=== PATIENT | male | born 1970 ===

== ENCOUNTER 2017-06-23 15:40 | Emergency (ER) | payer BC ==
[2017-06-23 16:18] VITALS: BP 116/74; TEMP 98.2
--- NOTE | 2017-06-23 16:23 | C.PDOC ---
History Of Present Illness 47 y/o male presents to ED for evaluation of chest wall injury prior to arrival. Pt states he was at work when he accidentally fell out of car and struck metal object with front of his chest. Pt complaints of pain to the area, and states pain is worse with movement. Denies new deformity, shortness of breath, other associated trauma or symptoms. No pain meds taken prior to arrival. CHEST WALL INJURY ONSET DESULFURIZER MACHINE. PS AT WORK, ACCIDENTALLY FELL OUT OF CAR AND STRUCK METAL OBJECT WITH FRONT OF CHEST. CO PAIN TO AREA. WORSE W MOVEMENT. DENIES NEW DEFORMITY, SOB, OTHER ASSOC TRAUMA OR SX. NO PAIN MEDS TAKEN DESULFURIZER MACHINE EXAM MILD DIST NONTOXIC HEETN ATRAUM CHEST WALL +STERNAL TEND NO DEFORM, CREPITUS. NO SWELL. LUNGS CTA B/L NO W/R/R SKIN INTACT NO BRUISING, ATRAUM REMAINDE RNEG - HPI Time Seen by Provider: 06/23/17 16:17 Chief Complaint (Nursing): Trauma History Per: Patient History/Exam Limitations: no limitations Onset/Duration Of Symptoms: Mins Injury Occurred (Timing): Just Before Arrival Location Of Injury: Anterior: Chest Recent travel outside of the [place]: No Additional History Per: Patient Past Medical History Reviewed: Historical Data, Nursing Documentation, Vital Signs Vital Signs: Last Vital Signs Temp 98.2 F 06/23/17 16:18 Pulse 74 06/23/17 16:18 Resp 18 06/23/17 16:18 BP 116/74 06/23/17 16:18 Pulse Ox 96 06/23/17 16:46 Family History: States: No Known Family Hx - Social History Hx Alcohol Use: No Hx Substance Use: No - Immunization History Hx Tetanus Toxoid Vaccination: No Hx Influenza Vaccination: No Hx Pneumococcal Vaccination: No Review Of Systems Except As Marked, All Systems Reviewed And Found Negative. Cardiovascular: Positive for: Chest Pain (chest wall). Negative for: Palpitations, Light Headedness Respiratory: Negative for: Shortness of Breath Skin: Negative for: Bruising Physical Exam - Physical Exam Appears: Non-toxic, Other (In mild distress) Skin: Normal Color, Warm, Dry, No Ecchymosis (no bruising) Head: Atraumatic, Normacephalic Eye(s): bilateral: Normal Inspection Ear(s): Bilateral: Normal Nose: Normal Oral Mucosa: Moist Throat: Normal Neck: Normal ROM, Supple Chest: Symmetrical, No Deformity, Tenderness (sternal chest wall), No Ecchymosis , No Other (no crepitus or swelling) Cardiovascular: Rhythm Regular, No Murmur Respiratory: Normal Breath Sounds, No Rales, No Rhonchi, No Wheezing, Other ( CTA b/l) Extremity: Bilateral: Atraumatic, Normal Color And Temperature, Normal ROM Neurological/Psych: Oriented x3, Normal Speech, Normal Cognition ED Course And Treatment O2 Sat by Pulse Oximetry: 96 (on RA) Pulse Ox Interpretation: Normal - Other Rad Sternum x-ray X-Ray: Interpreted by Me, Viewed By Me Interpretation: No acute fracture or dislocation. Medical Decision Making Medical Decision Making: Plan: CXR, sternum x-ray Lidoderm, Motrin, and Tylenol. Disposition Counseled Patient/Family Regarding: Studies Performed, Diagnosis, Need For Followup, Rx Given - Disposition Referrals: YOUR,PMD [Other] Disposition: HOME/ ROUTINE Disposition Time: 16:46 Condition: IMPROVED Additional Instructions: retire el parche 12 horas despus de la aplicacin inicial. Prescriptions: Acetaminophen [Tylenol Extra Strength] 2 tab PO Q6 #30 tablet Lidocaine 5% [Lidoderm] 1 ea TD PRN PRN #10 patch PRN Reason: Pain, Moderate (4-7) Naproxen 500 mg PO BID #30 tab Instructions: Blunt Chest Trauma (ED) Forms: [facility] (Australian), Work Excuse Print Language: INDONESIAN - Clinical Impression Clinical Impression: Chest wall contusion - Scribe Statement The provider has reviewed the documentation as recorded by the Neetaibyenifer Mathews All medical record entries made by the Scribe were at my direction and personally dictated by me. I have reviewed the chart and agree that the record accurately reflects my personal performance of the history, physical exam, medical decision making, and the department course for this patient. I have also personally directed, reviewed, and agree with the discharge instructions and disposition.
[2017-06-23] MEDS ORDERED: Lidocaine 5% Patch TD STA (16:24)
[2017-06-23] MEDS ORDERED: Lidocaine 5% Patch TD ONE (16:42)
--- NOTE | 2017-06-23 16:57 | RAD ---
PROCEDURE: Sternum HISTORY: TRAUMA COMPARISON: Not available TECHNIQUE: Frontal oblique and lateral views of the sternum are submitted. FINDINGS: There is no evidence of fracture. The sternoclavicular articulations are grossly intact. IMPRESSION: No evidence of fracture.
--- NOTE | 2017-06-23 16:57 | RAD ---
HISTORY: TRAUMA COMPARISON: No prior. TECHNIQUE: Chest PA and lateral FINDINGS: LUNGS: No active pulmonary disease. PLEURA: No significant pleural effusion identified. No pneumothorax apparent. CARDIOVASCULAR: Normal. OSSEOUS STRUCTURES: No significant abnormalities. VISUALIZED UPPER ABDOMEN: Normal. OTHER FINDINGS: None. IMPRESSION: No active disease.
[2017-06-23 17:05] VITALS: PULSE 71; RESP 17; O2SAT 18
--- NOTE | 2017-06-24 21:56 | CARD ---
APPROVED REPORT EKG Measurement Heart [id number] MD [id number] <Conclusion> Normal sinus rhythm Minimal voltage criteria for LVH, may be normal variant Borderline ECG
== END 2017-06-23 17:05 | disposition home or self-care (01) ==
LOC: C.ER 15:40
DX: S20.219A Contusion of unspecified front wall of thorax, initial encounter (principal); W18.39XA Other fall on same level, initial encounter; Y93.89 Activity, other specified; Y92.89 Other specified places as the place of occurrence of the external cause; Y99.8 Other external cause status